=== PATIENT | female | born 1985 | race African-American/Black ===

== ENCOUNTER 2016-06-07 15:40 | Emergency (ER) ==
[2016-06-07 16:03] VITALS: BP 103/58
[2016-06-07] MEDS ORDERED: DECADRON IM ONE (18:08)
[2016-06-07] MEDS ORDERED: SEPTRA DS PO ONE (18:09)
[2016-06-07] MEDS ORDERED: PEPCID PO ONE (18:09)
--- NOTE | 2016-06-07 18:09 | PROVIDER DOCUMENTATION ---
HPI-General Adult - General Chief Complaint: Insect Bite/Sting Stated Complaint: INSECT BITE/STING Time Seen by Provider: 06/07/16 18:02 Source: patient Allergies/Adverse Reactions: Patient Allergies Allergy/AdvReac Type Severity Reaction Status Date / Time No Known Allergies Allergy Verified 07/03/15 18:39 Home Medications: Escitalopram [Lexapro] 10 mg PO DAILY 07/03/15 - History of Present Illness -Gen Adult Nature of Presenting Problems: Pt. is 30 yof that presents with c/o insect bites to the back of her neck and right ankle. Pt. reports she was sitting on her couch last night and felt something on her neck and when she reached back there and felt there was nothing left but insect legs. Location of Pain/Injury: reports: neck. denies: head, face, mouth, chest, upper extremity, hand(s), abdomen, back, pelvis, genitalia, lower extremity, feet, upper body, lower body, generalized Pain Radiation: reports: no radiation Quality of Pain: reports: aching. denies: burning, cramping, dull, fullness, indigestion, pressure, sharp, stabbing, tearing, throbbing, tightness Severity: reports: mild. denies: moderate, severe Onset/Duration: reports: abrupt, last night Timing: reports: still present. denies: improving, gone now, resolved prior to arrival, intermittent, constant, changing over time, getting worse Context/Activities at Onset: reports: none. denies: recent emotional stress, recent physical stress, recent trauma history, possible bad food, cold exposure , out of country travel Modifying Factors: improves with: nothing Associated Symptoms: reports: other (insect bites to back of neck). denies: anxiety, arm pain, back/neck pain, chest pain, constipation, cough, diaphoresis , diarrhea, dizziness, EENT symptoms, fatigue, fever/chills, genitourinary problems, headaches, heartburn, joint pain, loss of appetite, malaise, muscle aches, sinus congestion/drainage, nausea, rash, seizure, shortness of breath, sensory/motor loss, pain with inspiration, swelling/mass in abdomen, syncope, vomiting, weakness, trouble walking Similar Symptoms Previously?: Yes Recently seen or treated by another doctor?: No Review of Systems - Adult - REVIEW OF SYSTEMS - ADULT Constitutional: reports: see HPI. denies: chills, fever, fatique Eyes: reports: see HPI. denies: discharge, blurred vision, double vision, eye pain Ears, Nose, Mouth & Throat: reports: see HPI. denies: ear discharge, ear pain, hearing loss, nose pain, loose teeth, mouth/dental pain, throat swelling Cardiovascular: reports: see HPI. denies: chest pain, irregular heart rate, orthopnea, palpitations, syncope Respiratory: reports: see HPI. denies: chronic cough, cough, dyspnea on exertion, pleurisy, shortness of breath, wheezing Gastrointestinal: reports: see HPI. denies: abdominal pain, hematemesis, difficulty swallowing, frequent heartburn, nausea Genitourinary: reports: see HPI. denies: dysuria, discharge, hematuria, hesitency, urgency Musculoskeletal: reports: see HPI. denies: bone pain, back pain, joint pain, muscle aches, neck pain Integumentary: reports: see HPI, skin sores/ulcer. denies: hives, itching, rash , skin thickening Neurological: reports: see HPI. denies: ataxia, headache/migraines, numbness, seizure, tremors Psychiatric: reports: see HPI. denies: anxiety, depression, emotional problems , insomnia, panic attacks, suicidal thoughts Past History - Adult - PAST MEDICAL HISTORY-ADULT Review of Records: reports: Old Records Reviewed, Nursing Assessment Review, Medications Reviewed, Social history reviewed & non-contributory. Major Childhood Illnesses: reports: denies history Cardiovascular: reports: denies history Respiratory: reports: denies history Gastrointestinal: reports: denies history Obstetrical/Gynecological: reports: denies history Genitourinary: reports: denies history Musculoskeletal: reports: denies history Neurological: reports: denies history Endocrine/Immune: reports: denies history Other Conditions: reports: denies history - FAMILY HISTORY Family History: reviewed, not pertinent Physical Exam-General - PHYSICAL EXAM-ADULT Initial Vital Signs Reviewed: Yes - CONSTITUTIONAL General Appearance: alert, no apparent distress, thin. negative: anxious, lethargic, slow to respond, obtunded, combative - EYES Eyes: PERRL/EOMI, pink conjunctivae. negative: conjuctival exudate, photophobia , subconjunctival hemorrhage - HEAD, EARS, NOSE, MOUTH & THROAT HENMT: normocephalic/atraumatic, moist mucous membranes, normal ENT inspection. negative: angioedema, frontal tenderness, maxillary tenderness - NECK Neck: non-tender, full range of motion, supple, normal inspection. negative: lymphadenopathy, trachial deviation, thyromegaly - RESPIRATORY Respiratory: lungs clear, normal breath sounds. negative: crackles, rales, rhonchi, stridor, wheezing - CARDIOVASCULAR Cardiovascular: normal peripheral pulses, regular rate, rhythm, no edema, no JVD , no murmur. negative: extra beats, friction rub, irregularly irregular - CHEST (BREASTS) Chest/Breast: deferred - GASTROINTESTINAL (ABDOMEN) Abdominal Exam: normal bowel sounds, non tender, soft. negative: distended, guarding, rigid, rebound, tenderness, hernia, mass - GENITOURINARY Female Genitalia/Pelvic Exam: deferred Rectal Exam: deferred Hemoccult Exam: deferred - LYMPHATIC Lymphatic: no adenopathy. negative: axilla node tender, cervical node tenderness - MUSCULOSKELETAL Back Exam: normal inspection, no CVA tenderness, no vertebral tenderness. negative: ecchymosis, muscle spasm, vertebral tenderness Extremity: normal range of motion, non-tender, normal gait, normal inspection. negative: deformity, erythema, inflammation, swelling, tenderness Peripheral Pulses: radial (R): 2+, radial (L): 2+ - SKIN Integumentary: normal color, normal turgor, warm/dry, erythema (Small insect bites to back of neck), tenderness (Small insect bites to back of neck). negative: cyanosis, diaphoresis, ecchymosis, jaundice, mottled, pallor, petechiae, purpura, rash, swelling - NEUROLOGIC Neurologic: grossly normal, no motor/sensory deficits. negative: aphasia, facial droop, focal weakness, motor weakness, sensory deficit - PSYCHIATRIC Psych/Mental Status: normal mood/affect, normal thought content, normal thought process, oriented x 3. negative: anxious, paranoid, tearful Progress - PLAN OF CARE/RESULTS Progress/Plan/Lab Results: Discussed results and plan of care with patient. Patient agrees with plan and verbalizes understanding. Vital Signs Temp Pulse Resp BP Pulse Ox 06/07/16 16:02 98.2 F 86 18 103/58 100 No Known Allergies Allergy (Verified 07/03/15 18:39) Diphenhydramine [Benadryl] 25 mg PO Q4-6H PRN PRN #20 capsule 07/03/15 Escitalopram [Lexapro] 10 mg PO DAILY 07/03/15 Famotidine [Pepcid] 20 mg PO DAILY #20 tablet 07/03/15 Methylprednisolone [Medrol Dosepak] 4 mg PO DIRECTED #1 package 07/03/15 Orders Category Date Time Status Dexamethasone [Decadron] Med 06/07/16 18:08 Discontinued 10 mg IM NOW ONE Famotidine [Pepcid] Med 06/07/16 18:09 Discontinued 20 mg PO NOW ONE Sulfamethoxazole/Tmp D.s. [Septra Ds] Med 06/07/16 18:09 Discontinued 1 each PO NOW ONE Departure - Departure Time of Disposition Order: 18:21 DIAGNOSIS: Insect bite Qualifiers: Encounter type: initial encounter Qualified Code(s): W57.XXXA - Bitten or stung by nonvenomous insect and other nonvenomous arthropods, initial encounter Disposition: HOME 01 Certified Medical Emergency: Emergent Condition: Stable Additional Instructions: Follow up with primary care physician Take medications as directed Return to ED for any concerns or worsening of symptoms ED Follow Up Instructions: You have been treated by a care provider in the Emergency Department. These instructions are being provided to you so you can have an understanding of how to care for yourself upon discharge. Upon discharge from the Emergency Department, you are responsible for making arrangements for follow-up care by a physician of your choice. Take all prescribed medications as directed. Return to the Emergency Department immediately for any new or worsening symptoms. You may call the Physician Referral phone number at [phone] to obtain a list of Physicians who are taking new patients. Prescriptions: Sulfamethoxazole/Trimethoprim [Bactrim Ds Tablet] 1 each PO BID #10 tablet Methylprednisolone [Medrol Dosepak] 4 mg PO DIRECTED #1 package Famotidine [Pepcid] 20 mg PO DAILY #10 tablet Attestation - Physician/ Mid-level Attestation Patient care was provided by Mid-level provider (PAPETERIE TABLE ASSEMBLER/PA):: Yes Mid-level provider:: Fariha Guzman Mid-level documentation review:: The Mid-level provider documentation, treatment plan and medical decision making was reviewed by the physician who agrees with all treatment and medical decision making by the MLP.
== END 2016-06-07 18:37 | disposition home or self-care (01) ==
LOC: P.ED 15:40
DX: S10.96XA Insect bite of unspecified part of neck, initial encounter (principal); W57.XXXA Bitten or stung by nonvenomous insect and other nonvenomous arthropods, initial encounter; Z79.899 Other long term (current) drug therapy
CPT/HCPCS: 96372

== ENCOUNTER 2016-07-31 15:28 | Emergency (ER) ==
[2016-07-31 15:34] VITALS: BP 114/67
--- NOTE | 2016-07-31 16:21 | PROVIDER DOCUMENTATION ---
HPI-Rash/Wound/ReCheck - General Source: patient - History of Present Illness-Dermatology Location: reports: lower extremity (R outer leg and L inner leg) Quality: reports: itchy, painful Severity: reports: mild Onset/Duration: reports: 24 hours ago Timing: reports: still present, intermittent Context/Associated Symptoms: reports: insect bite/sting Identifiable cause?: No Exposure: reports: unknown cause Locality of Occurance: Home Similar Symptoms Previously?: Yes Recently seen or treated by another doctor?: No <Lizette Larson - Last Filed: 07/31/16 16:16> <Sarah Parr - Last Filed: 07/31/16 16:31> - General Chief Complaint: Insect Bite/Sting Stated Complaint: INSECT/BUG BITE Time Seen by Provider: 07/31/16 15:44 Allergies/Adverse Reactions: Allergies Allergy/AdvReac Type Severity Reaction Status Date / Time No Known Allergies Allergy Verified 07/03/15 18:39 Home Medications: Home Medication List Medication Instructions Recorded Confirmed Last Taken Type Diphenhydramine [Benadryl] 25 mg PO Q4-6H PRN PRN #20 capsule 07/03/15 Unknown Rx Escitalopram [Lexapro] 10 mg PO DAILY 07/03/15 07/03/15 07/02/15 10:00 History Famotidine [Pepcid] 20 mg PO DAILY #20 tablet 07/03/15 Unknown Rx Methylprednisolone [Medrol Dosepak] 4 mg PO DIRECTED #1 package 07/03/15 Unknown Rx Famotidine [Pepcid] 20 mg PO DAILY #10 tablet 06/07/16 Unknown Rx Methylprednisolone [Medrol Dosepak] 4 mg PO DIRECTED #1 package 06/07/16 Unknown Rx Sulfamethoxazole/Trimethoprim 1 each PO BID #10 tablet 06/07/16 Unknown Rx [Bactrim Ds Tablet] Sulfamethoxazole/Trimethoprim 1 each PO BID #20 tablet 07/31/16 Unknown Rx [Bactrim Ds Tablet] - History of Present Illness-Dermatology Nature of Presenting Problem: Pt is 30 y/o F presents to the ED with insects bites. Pt states the insect bites having been presents since yesterday. Pt states the bites itches and they are painful. Pt denies F. (Lizette Larson) Review of Systems - Adult - REVIEW OF SYSTEMS - ADULT Constitutional: denies: chills, fever Eyes: denies: blurred vision, double vision Ears, Nose, Mouth & Throat: denies: ear pain, nose pain, throat pain Cardiovascular: denies: chest pain, heart murmur, irregular heart rate Respiratory: denies: cough, shortness of breath, wheezing Gastrointestinal: denies: abdominal pain, diarrhea, nausea, vomiting Genitourinary: denies: dysuria, hematuria Musculoskeletal: denies: bone pain, joint pain, neck pain Integumentary: reports: itching (due to insect bites), other (insect bites to R outer leg and L inner leg). denies: hives Neurological: denies: dizziness/vertigo, headache/migraines Psychiatric: reports: no symptoms reported Endocrine: reports: no symptoms reported Hematologic/Lymphatic: reports: no symptoms reported Allergic/Immunologic: reports: no symptoms reported All Other Systems: Reviewed and Negative <Lizette Larson - Last Filed: 07/31/16 16:16> Past History - Adult - PAST MEDICAL HISTORY-ADULT Review of Records: reports: Nursing Assessment Review, Medications Reviewed, Social history reviewed & non-contributory. Major Childhood Illnesses: reports: denies history Cardiovascular: reports: denies history Respiratory: reports: denies history Gastrointestinal: reports: denies history Obstetrical/Gynecological: reports: ectopic Genitourinary: reports: denies history Musculoskeletal: reports: denies history Neurological: reports: denies history Endocrine/Immune: reports: denies history Other Conditions: reports: denies history - FAMILY HISTORY Family History: reviewed, not pertinent - SOCIAL HISTORY Smoking: cigarettes, less than 1 pack/day Provider spent 3-5 mins advising pt. on dangers of tobacco.: Discussed manners to quit use, and f/u contacts for add'l counseling. Substance Use: alcohol Alcohol Use Frequency: rarely Number of drinks per typical drinking period:: 2 drinks Living Situation: family <Lizette Larson - Last Filed: 07/31/16 16:16> Physical Exam-General - PHYSICAL EXAM-ADULT Initial Vital Signs Reviewed: Yes - CONSTITUTIONAL General Appearance: appears well, alert, no apparent distress - EYES Eyes: PERRL/EOMI, pink conjunctivae, fundi clear, no AV nicking - HEAD, EARS, NOSE, MOUTH & THROAT HENMT: normocephalic/atraumatic, moist mucous membranes, normal ENT inspection, TMs normal, pharynx normal - NECK Neck: non-tender, full range of motion, supple, normal inspection - RESPIRATORY Respiratory: chest non-tender, lungs clear, normal breath sounds, no pleuratic chest pain, no respiratory distress, no accessory muscle use - CARDIOVASCULAR Cardiovascular: normal peripheral pulses, regular rate, rhythm, no edema, no gallop, no JVD, no murmur - GASTROINTESTINAL (ABDOMEN) Abdominal Exam: normal bowel sounds, non tender, soft, no organomegaly, no pulsatile mass - LYMPHATIC Lymphatic: no adenopathy - MUSCULOSKELETAL Back Exam: normal inspection, no CVA tenderness, no vertebral tenderness Extremity: normal range of motion, non-tender, normal gait, normal inspection, no pedal edema, no calf tenderness, normal capillary refill, pelvis stable - SKIN Integumentary: normal color, normal turgor, warm/dry, other (insect bites to R outer leg and L inner leg) - NEUROLOGIC Neurologic: medicare compliance auditor II-XII nml as tested, grossly normal, no motor/sensory deficits - PSYCHIATRIC Psych/Mental Status: normal mood/affect, normal thought content, normal thought process, oriented x 3 <Lizette Larson - Last Filed: 07/31/16 16:16> - PHYSICAL EXAM-ADULT Initial Vital Signs Reviewed: Yes - CONSTITUTIONAL General Appearance: appears well, alert - EYES Eyes: PERRL/EOMI, pink conjunctivae - HEAD, EARS, NOSE, MOUTH & THROAT HENMT: normocephalic/atraumatic, moist mucous membranes, normal ENT inspection - RESPIRATORY Respiratory: lungs clear, normal breath sounds - CARDIOVASCULAR Cardiovascular: normal peripheral pulses, regular rate, rhythm - SKIN Integumentary: normal color, warm/dry, erythema, tenderness (scattered bites to right lateral leg; left medial leg). negative: ecchymosis - PSYCHIATRIC Psych/Mental Status: normal mood/affect, oriented x 3 <Sarah Parr - Last Filed: 07/31/16 16:31> Progress <Lizette Larson - Last Filed: 07/31/16 16:16> <Sarah Parr - Last Filed: 07/31/16 16:31> - PLAN OF CARE/RESULTS Progress/Plan/Lab Results: Vital Signs - 24 hr 07/31/16 15:30 Temperature 97.8 F Pulse Rate 81 Respiratory 18 Rate Blood Pressure 114/67 O2 Sat by Pulse 100 Oximetry (Lizette Larson) Discussed care, diagnosis and need for follow-up, patient verbalized understanding Orders Category Date Time Status CefTRIAXONE [Rocephin] Med 07/31/16 16:26 Discontinued 1 gm IM NOW ONE Lidocaine 1% Pf [Xylocaine-Mpf 1%] Med 07/31/16 16:26 Discontinued 5 ml INJ NOW ONE Last Vital Signs Temp 97.8 F 07/31/16 15:30 Pulse 81 07/31/16 15:30 Resp 18 07/31/16 15:30 BP 114/67 07/31/16 15:30 Pulse Ox 100 07/31/16 15:30 Allergies No Known Allergies Allergy (Verified 07/03/15 18:39) Vital Signs - 24 hr 07/31/16 15:30 Temperature 97.8 F Pulse Rate 81 Respiratory 18 Rate Blood Pressure 114/67 O2 Sat by Pulse 100 Oximetry (Sarah Parr) Departure <Lizette Larson - Last Filed: 07/31/16 16:16> - Departure Time of Disposition Order: 16:26 Certified Medical Emergency: Emergent <Sarah Parr - Last Filed: 07/31/16 16:31> - Departure DIAGNOSIS: Insect bite Qualifiers: Encounter type: initial encounter Qualified Code(s): W57.XXXA - Bitten or stung by nonvenomous insect and other nonvenomous arthropods, initial encounter Disposition: HOME 01 Condition: Stable Additional Instructions: Medication as directed Keep skin clean and dry ED Follow Up Instructions: You have been treated by a care provider in the Emergency Department. These instructions are being provided to you so you can have an understanding of how to care for yourself upon discharge. Upon discharge from the Emergency Department, you are responsible for making arrangements for follow-up care by a physician of your choice. Take all prescribed medications as directed. Return to the Emergency Department immediately for any new or worsening symptoms. You may call the Physician Referral phone number at [phone] to obtain a list of Physicians who are taking new patients. Prescriptions: Sulfamethoxazole/Trimethoprim [Bactrim Ds Tablet] 1 each PO BID #20 tablet Referrals: None,PCP [Primary Care Provider] - Attestation - Scribe Verification/Attestation Scribe:: Lizette Larson Acting as Scribe for:: Sarah Parr Scribe documention review:: This chart was documented by a scribe and accurately reflects the service the provider performed and the decisions made by the provider. <Lizette Larson - Last Filed: 07/31/16 16:16> Physician Attestation
[2016-07-31] MEDS ORDERED: ROCEPHIN IM ONE (16:26)
[2016-07-31] MEDS ORDERED: XYLOCAINE-MPF 1% INJ ONE (16:26)
== END 2016-07-31 17:02 | disposition home or self-care (01) ==
LOC: P.ED 15:28
DX: S80.862A Insect bite (nonvenomous), left lower leg, initial encounter (principal); S80.861A Insect bite (nonvenomous), right lower leg, initial encounter; L29.9 Pruritus, unspecified; M79.605 Pain in left leg; M79.604 Pain in right leg; W57.XXXA Bitten or stung by nonvenomous insect and other nonvenomous arthropods, initial encounter; F17.210 Nicotine dependence, cigarettes, uncomplicated; Z71.6 Tobacco abuse counseling; Z79.899 Other long term (current) drug therapy
CPT/HCPCS: 96372; J0696